=== PATIENT | male | born 1950 | race Caucasian/White ===

== ENCOUNTER 2016-05-24 05:45 | Inpatient (IN) ==
[2016-05-20 09:45] LABS: Basophils # 0.1 10*3/uL (0.0-0.2); Basophils % 0.8 % (0.0-0.8); Eosinophils # 0.2 10*3/uL (0.0-0.87); Eosinophils % 2.3 % (0.00-10.9); Hematocrit 46.4 VOL% (42.0-52.0); Hemoglobin 15.1 GM/DL (14.0-18.0); Immature Granulocytes % 0.5 %; Immature Granulocytes Absolute 0.03 #; Lymphocytes # 1.8 10*3/uL (1.4-4.0); Lymphocytes % 26.8 % (21.2-54.2); Mean Corpuscular HGB Conc 32.5 GM/DL (32-36); Mean Corpuscular Hemoglobin 29 PG (27-34); Mean Corpuscular Volume 89.7 FL (87-102); Mean Platelet Volume 9.4 FL (9.6-12.0); Monocytes # 0.7 10*3/uL (0.11-0.8); Monocytes % 10.8 % (1.7-12.7); Neutrophils # 3.9 10*3/uL (1.4-7.4); Neutrophils % 58.8 % (38.7-73.9); Platelet Count 236 10*3/uL (130-400); Red Blood Count 5.17 10*6/uL (3.8-5.5); Red Cell Distribution Width 13.2 % (9.3-17.3); White Blood Count 6.6 10*3/uL (4.5-13.71)
[2016-05-20 09:51] LABS: Apearance,Urine CLEAR (Clear); Bilirubin,Urine Negative (Negative); Blood, Urine Small mg/dL (Negative); Glucose,Urine (UA) Negative (Negative); Ketones,Urine Negative (Negative); Mucus,Urine Occasional /LPF (Occasional); Nitrite,Urine Negative (Negative); Protein,Urine Negative; RBC,Urine 1 /HPF (0-4); Urine Color Straw (Yellow); Urine Specific Gravity 1.004 (1.001-1.035); Urine Urobilinogen < 2.0 EU/DL (0.2-1.0); WBC,Urine 1 /HPF (0-6)
[2016-05-20 10:15] LABS: Calcium 9.5 MG/DL (8.5-10.1); Osmolality,Calculated 287.8 MOS/KG (273-304); Potassium 4.5 MMOL/L (3.5-5.1)
--- NOTE | 2016-05-20 10:31 | EKG Report ---
Stationary ECG Study [facility] Test Date: 05/20/2016 10:30:53 AM Pat Name: THOMAS ALAN Department: Room: Gender: M [employer] Teacher: CHAPIS 05-[birth year]16 : 1950 Requested by: Jones Salinas Order Number: [id number] Reading MD: ASIA DIEHL Intervals [place] Rate: 70 P: 46 OR: 156 QRS: 42 QRSD: 84 T: 58 QT: 388 QTc: 408 Interpretive Statements SINUS RHYTHM Electronically Signed On 05-20-16 14:08:46 SOLUTION DESIGN ENGINEER by ASIA DIEHL [email or web address]
[2016-05-24] MEDS ORDERED: LEVOFLOXACIN INJ 500 MG in PREMIX 1 EACH IV ONE (06:00)
[2016-05-24] MEDS: LACTATED RINGERS 1,000 ML IV SCH ×2 (06:25→08:01)
[2016-05-24] MEDS ORDERED: LEVOFLOXACIN INJ 100 ML IV ONE (06:45)
--- NOTE | 2016-05-24 07:02 | History and Physical Update ---
History and Physical Update - History and Physical H&P was reviewed, the patient examined and there: are no changes in the patients condition since last H&P was completed.
[2016-05-24] MEDS ORDERED: PHENYLEPHRINE 1 MG/10 ML SYRINGE IV ONE (07:15)
[2016-05-24] MEDS ORDERED: PROPOFOL 200 MG/20 ML VIAL IV ONE (07:15)
[2016-05-24] MEDS ORDERED: NEOSTIGMINE 10 MG/10 ML VIAL ONE (07:15)
[2016-05-24] MEDS ORDERED: ONDANSETRON 4 MG/2 ML VIAL ONE (07:15)
[2016-05-24] MEDS ORDERED: GLYCOPYRROLATE 0.4 MG/2 ML VIAL ONE (07:15)
[2016-05-24] MEDS ORDERED: ROCURONIUM 100 MG/10 ML VIAL IV ONE (07:15)
[2016-05-24] MEDS ORDERED: LIDOCAINE 1% 5 ML VIAL ONE (07:15)
[2016-05-24] MEDS ORDERED: ONDANSETRON 4 MG/2 ML VIAL IV PRN (08:53)
[2016-05-24] MEDS ORDERED: LACTULOSE 20 GM/30 ML UDCUP PO PRN (08:53)
[2016-05-24] MEDS ORDERED: MEPERIDINE 50 MG/1 ML VIAL IM PRN (08:58)
--- NOTE | 2016-05-24 09:04 | Operative Note ---
Date of procedure: 05/24/16 Pre-op diagnosis: BPH, bladder stones, urinary retention Post-op diagnosis: same Procedure: 65-year-old gentleman who has BPH, bladder stones and urinary retention. Brought in for removal of the bladder stones and transurethral resection of the prostate. Post procedure was explained at length and in detail. Risks, complications, outcomes, sequelae, prognosis and alternative therapy was thoroughly discussed. Patient understood this and agreed to proceed Patient brought to operative suite given a general LMA anesthetic which he tolerated well. He is then placed in lithotomy position and prepared and draped in the usual sterile manner. A 25 Vincentian cystourethroscope was passed under direct vision. The prostate is large 3 3 half fingerbreadths trilobar obstruction. There is multiple bladder stones. Some of the stones are adhered to the mucosa the prosthetic urethra. These were then dislodged in removed. Jackson was removed and the 28 Vincentian resectoscope sheath with Hilda obturator was placed in the bladder. The obturator was removed. The [employer] working element 30 lens and loop was placed in the sheath. The resection was begun at the 12 o'clock position and taken down to the surgical capsule. The resection was continued likewise manner from the 1 o' clock to 5 o'clock to 11 o'clock to 7 o'clock position. Cautery was used to free hemostasis. The bladder was irrigated of all chips. Prosthetic fossa was fulgurated as this was a very vascular gland. Reinspection revealed hemostasis adequate the bladder is free of chips, stones and clot. Resectoscope was then removed and a 24 Vincentian three-way Patel catheter was inserted in the bladder and irrigated until clear. The catheter was then connected irrigation of Patel drainage. Patient tolerated this procedure well was sent to the recovery room in stable condition. All sponge, needle Counts correct times 2. Anesthesia: GETA Surgeon / Physician: Jones Salinas Estimated blood loss: other (400cc) Specimens: other (bladder stones, prostate chips) Condition: stable Disposition: PACU Results - Labs CBC & BMP: 05/20/16 09:36 05/20/16 09:36 Discharge Plan - Discharge Medications No Action Aspirin [Ecotrin] 81 mg PO DAILY Gabapentin 300 mg PO TID Tamsulosin [Flomax] 0.4 mg PO DAILY Dutasteride [Avodart] 0.5 mg PO BEDTIME - Follow Up or Referral - Forms/Instructions
[2016-05-24] MEDS ORDERED: MIDAZOLAM 2 MG/2 ML VIAL ONE (09:12)
[2016-05-24] MEDS ORDERED: fentaNYL 100 MCG/2 ML VIAL ONE (09:12)
[2016-05-24] MEDS: DEXTROSE 5% NACL 0.45% 1,000 ML IV SCH ×2 (10:24→21:43)
[2016-05-24] MEDS: GABAPENTIN 300 MG CAPSULE PO SCH ×3 (10:25→21:43)
--- NOTE | 2016-05-24 11:37 | Urology Progress Note ---
Urology - PN: Subj Interval history: Postoperative check. Patient is awake and alert. His catheter is on traction with his effluent is pink tinged. I will discontinue the traction. Vital signs are stable. Patient is stable. Exam - Constitutional Vitals: Period Temp Pulse Resp BP Sys/Gutierrez Pulse Ox Last 24 Hr 97.1 F-98.0 F 70-89 12-18 133-160/86-95 95-100 Results - Labs CBC & BMP: 05/20/16 09:36 05/20/16 09:36
[2016-05-24] MEDS: DUTASTERIDE 0.5 MG CAPSULE PO SCH (21:42)
[2016-05-25 03:41] LABS: Basophils % 0.3 % (0.0-0.8); Eosinophils # 0.1 10*3/uL (0.0-0.87); Eosinophils % 1.1 % (0.00-10.9); Hematocrit 37.6 VOL% (42.0-52.0); Hemoglobin 12.2 GM/DL (14.0-18.0); Immature Granulocytes % 0.3 %; Immature Granulocytes Absolute 0.04 #; Lymphocytes # 0.6 10*3/uL (1.4-4.0); Lymphocytes % 5.2 % (21.2-54.2); Mean Corpuscular HGB Conc 32.4 GM/DL (32-36); Mean Corpuscular Hemoglobin 29 PG (27-34); Mean Corpuscular Volume 90.2 FL (87-102); Mean Platelet Volume 9.6 FL (9.6-12.0); Monocytes # 0.8 10*3/uL (0.11-0.8); Monocytes % 7.2 % (1.7-12.7); Neutrophils # 9.8 10*3/uL (1.4-7.4); Neutrophils % 85.9 % (38.7-73.9); Platelet Count 215 T/CUMM (130-400); Red Blood Count 4.17 MC/CUMM (3.8-5.5); Red Cell Distribution Width 13.2 % (9.3-17.3); White Blood Count 11.4 T/CUMM (4-12)
[2016-05-25 04:25] LABS: Calcium 8.5 MG/DL (8.5-10.1)
[2016-05-25] MEDS: DEXTROSE 5% NACL 0.45% 1,000 ML IV SCH (07:01)
[2016-05-25] MEDS: GABAPENTIN 300 MG CAPSULE PO SCH ×3 (09:27→20:26)
--- NOTE | 2016-05-25 09:37 | Urology Progress Note ---
Urology - PN: Subj Interval history: The patient had a stable night. However he spiked a fever this morning. 101. I suspect he probably had some underlying prostatitis. Urinalysis was rather unremarkable when he was admitted. His effluent is clear so I will remove his Patel. H&H is 12 and 38. Electrolytes are normal as is his creatinine. I'm going to place him on by mouth Levaquin due to the fever. We will remove his Patel catheter and his IV. We will I and T a chest in case we needed. He is to ambulate. We will see how he feels tomorrow. May have to keep him another day. Exam - Constitutional Vitals: Period Temp Pulse Resp BP Sys/Gutierrez Pulse Ox Last 24 Hr 97.1 F-101.0 F 63-101 16-19 138-159/69-89 93-100 Results - Labs CBC & BMP: 05/25/16 02:44 05/25/16 02:44
[2016-05-25] MEDS ORDERED: LEVOFLOXACIN 500 MG TABLET PO SCH (10:00)
--- NOTE | 2016-05-25 11:34 | Anesthesia ---
Anesthesia Post OP - Post Ansesthetic Evaluation Patient seen in post op: Yes Resp: within normal limits CV: within normal limits Mental: within normal limits Temp: within normal limits Mkit-Mz-Jifnjlhpb: within normal limits Nausea and Vomiting: within normal limits Pain: within normal limits
--- NOTE | 2016-05-25 15:42 | Pathology Report from [facility] ---
ACCESSION # : [id number] PATIENT NAME : Denzel Alan ORDERING DR : MELISSA GARCIA MD CLINICAL HX: BPH POST-OP DX: Same SPECIMEN INFO: Prostate scrapings GROSS DESCRIPTION: The cliftonicmen is received fresh labeled "DENZEL ALAN" and consists of multiple fragments of pink-degroot prostate tissue measuring 8.5 x 6.5 x 1.0 cm and weighs 43.0 gm. Also received are three yellow-brown stone fragments measuring 2.2 x 0.7 cm in aggregate. Voucher Examiner sections are submitted in cassettes A thru H. DIAGNOSIS FOR DENZEL ALAN: PROSTATE SCRAPINGS: Glandular and fibromuscular hyperplasia; chronic prostatitis. SERVICE DATE: 05/24/2016 REPORT DATE: 05/25/2016 PATHOLOGIST: Valerie Cheung M.D. [facility]ITALMirlande
[2016-05-25] MEDS: DUTASTERIDE 0.5 MG CAPSULE PO SCH (20:26)
[2016-05-25] MEDS: SULFAMETHOX/TRIMETHOPRIM 800-160 MG TABLET PO SCH (20:26)
[2016-05-26] MEDS: GABAPENTIN 300 MG CAPSULE PO SCH (09:15)
[2016-05-26] MEDS: SULFAMETHOX/TRIMETHOPRIM 800-160 MG TABLET PO SCH (09:15)
--- NOTE | 2016-05-26 11:55 | Discharge Summary ---
Hospital Course - Hospital Course Hospital Course: 65-year-old gentleman with BPH failing medical management. Her TURP. He underwent this without difficulty. Postoperatively his urine is clear. Catheter was removed on the first day. H&H was fine. Electrolytes were normal as was his creatinine. His pathology report revealed BPH. We will discharge him follow-up in the office. He did run a little superficial and can continue the Bactrim. The pathology report revealed chronic prostatitis. I will see him in 2 weeks. Diagnosis - Discharge Diagnosis (1) BPH (benign prostatic hypertrophy) with urinary obstruction Status: Resolved Discharge Plan - Discharge Data Disposition: Disch To Home/Self Care Condition at Discharge: Stable Discharge Diet: advance to your usual diet Activity: other (minimal, walking on flat ground is encouraged) Hygiene: no restrictions Weight Bearing at Discharge: full weight bearing Driving: not until seen by doctor Contact your physician if you experience:: fever over 101, Difficulty voiding, Bleeding - Discharge Medications New Dutasteride [Avodart] 0.5 mg PO BEDTIME capsule HYDROcodone/ACETAMIN 5-325 [[place] 5-325] 1 - 2 tablet PO Q4H PRN #0 tablet PRN Reason: Pain Moderate (4-7) Sulfameth/Trimeth 800-160 Tab [Bactrim DS Tab] 1 tablet PO BID tablet Continue Gabapentin 300 mg PO TID Dutasteride [Avodart] 0.5 mg PO BEDTIME Discontinued Aspirin [Ecotrin] 81 mg PO DAILY Tamsulosin [Flomax] 0.4 mg PO DAILY - Follow Up or Referral - Forms/Instructions Exam - Constitutional Vitals: Period Temp Pulse Resp BP Sys/Gutierrez Pulse Ox Last 24 Hr 97.8 F-99.9 F 88-99 17-21 142-162/68-83 93-95 Discharge Results Procedures and tests throughout hospitalization: Pending Orders 05/24/16 09:09 Kidney Stone Analysis Routine DS: Provider Date of admission: 05/24/16 05:45 Primary care physician: Milton Juarez Attending physician on admission: Jones Salinas MD Discharging clinician: Jones Salinas MD
[2016-05-26 12:11] VITALS: BP 143/86
[2016-05-28 16:17] LABS: Stone Source Passed Stone
== END 2016-05-26 13:56 | disposition home or self-care (01) | DRG 667 ==
LOC: N.OR 05:45 → N.SDSINP 05:45 → EDSTATUS 07:30 → N.5E 08:53
PROVIDERS: ADMIT Urology; ATTEND Urology